=== PATIENT | female | born 1985 | race Two or more races ===

== ENCOUNTER 2024-02-07 18:36 | Emergency (ER) | payer BC ==
[~2024-02-07] VITALS: Ht 170.2 cm; Wt 76.2 kg
[2024-02-07] MEDS ORDERED: AZIT500T PO (19:31)
[2024-02-07] MEDS ORDERED: ALBU8.5H8 INH (19:31)
[2024-02-07] MEDS ORDERED: PRED50TA PO (19:31)
[2024-02-07] MEDS ORDERED: paxlovid PO (19:31)
[2024-02-07 20:32] VITALS: BP 102/84; TEMP 98; O2SAT 98
== END 2024-02-07 20:33 | disposition home or self-care (01) ==
LOC: ER 18:38
DX: U07.1 COVID-19 (principal); J45.909 Unspecified asthma, uncomplicated; Z79.1 Long term (current) use of non-steroidal anti-inflammatories (NSAID); Z79.899 Other long term (current) drug therapy; Z88.5 Allergy status to narcotic agent
CPT/HCPCS: A4606; A4663